=== PATIENT | female | born 1930 ===

== ENCOUNTER → 2017-11-22 | Outpatient (REF) | payer MEDICARE ==
[2017-11-22 18:29] LABS: TOTAL PROTEIN,RANDOM URINE 34.5 MG/DL (0.0-12.0)
== END ==
LOC: M LAB REF 17:37
DX: N39.0 Urinary tract infection, site not specified (principal); N18.3 Chronic kidney disease, stage 3 (moderate); E11.22 Type 2 diabetes mellitus with diabetic chronic kidney disease
CPT/HCPCS: 82570